=== PATIENT | male | born 1990 | race Caucasian/White ===

== ENCOUNTER 2018-11-20 15:19 | Emergency (ER) | payer MEDICAID, OTHER ==
[~2018-11-20] VITALS: Ht 177.8 cm; Wt 125.0 kg
[2018-11-20 15:22] VITALS: Ht 177.8 cm; Wt 125.0 kg
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
[2018-11-20] MEDS ORDERED: IBUP800T48 PO (19:29)
[2018-11-20] MEDS ORDERED: HYDR-4011 PO (19:32)
[2018-11-20 19:52] VITALS: BP 122/75; PULSE 73; RESP 18
[2018-11-20] MEDS ORDERED: HYDROCODONE/APAP (5/325) TAB PO ONE (20:00)
== END 2018-11-20 19:56 | disposition home or self-care (01) ==
LOC: FTE 15:19
DX: S69.92XA Unspecified injury of left wrist, hand and finger(s), initial encounter (principal); V00.831A Fall from motorized mobility scooter, initial encounter; Y92.488 Other paved roadways as the place of occurrence of the external cause
CPT/HCPCS: 73130; Z7502; Z7610